=== PATIENT | male | born 1990 | race Caucasian/White ===

== ENCOUNTER 2018-08-23 16:45 | Emergency (ER) | payer OTHER, SELFPAY ==
[2018-08-23 16:47] VITALS: BP 132/80; PULSE 83; RESP 16; TEMP 37.1; O2SAT 97; BMI 32.3
[2018-08-23] MEDS: Acetaminophen 500 MG Tablet 1000 MG PO (17:21)
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
--- NOTE | 2018-08-23 17:24 | ED.DEP ---
ED Disposition - Plan for ED Patient: Disposition: Home or Assisted Living Chief Complaint: Laceration Instructions: ED Laceration Facial Skin Glue Referrals: Care Physician,No Primary [Primary Care Provider] -
[2018-08-23 17:54] VITALS: BP 128/78; PULSE 68; RESP 16; O2SAT 98
== END 2018-08-23 17:55 | disposition home or self-care (01) ==
PROVIDERS: Emergency Provider Emergency Medicine
DX: S01.21XA Laceration without foreign body of nose, initial encounter (principal); W22.8XXA Striking against or struck by other objects, initial encounter; Y93.89 Activity, other specified; Y92.9 Unspecified place or not applicable; Y99.0 Civilian activity done for income or pay
CPT/HCPCS: 12013; 99285

== ENCOUNTER → 2021-01-18 11:47 | Outpatient (CLI) | payer OTHER, SELFPAY ==
[2021-01-19 09:29] LABS: Thyroid Stim Hormone (TSH) 1.07 uIU/mL (0.358-3.74)
== END ==
PROVIDERS: Visit Provider Family Medicine
DX: F32.9 Major depressive disorder, single episode, unspecified (principal)
CPT/HCPCS: 36415; 84443

== ENCOUNTER → 2021-12-31 | Outpatient (CLI) | payer OTHER, SELFPAY ==
[2021-12-31 16:03] LABS: Anion Gap 6 (5-15); BUN 19 mg/dL (7-18); BUN/Creat Ratio 16.4 RATIO (10-20); Calcium,Total 9.2 mg/dL (8.5-10.1); Chloride 105 mmol/L (98-107); Creatinine, Serum 1.16 mg/dL (0.70-1.30); EST Glomerular Filtration Rate 77 mL/min (>60); Est Glom Filt Rate - Afr Amer 93 mL/min (>60); Glucose 86 mg/dL (74-106); Potassium 3.8 mmol/L (3.5-5.1); Sodium Level 138 mmol/L (136-145)
== END | disposition home or self-care (01) ==
LOC: MFPLAB 12:24
PROVIDERS: Visit Provider Family Medicine
DX: R30.0 Dysuria (principal)
CPT/HCPCS: 36415; 80048

== ENCOUNTER → 2022-01-01 | Outpatient (CLI) | payer OTHER, SELFPAY ==
--- NOTE | 2022-01-01 09:07 | US_ITS ---
STUDY: RENAL ULTRASOUND - COMPLETE REASON FOR EXAM: Male, 31 years old. Bilateral back pain. TECHNIQUE: Ultrasound evaluation of the kidneys was performed with real-time and static mckay-scale imaging. COMPARISON: None. FINDINGS: RIGHT KIDNEY: Normal location of the right kidney, which is normal in size. The right kidney measures 10.2 x 5.9 x 5.2 cm. There is a normal cortex of the right kidney. The renal cortex measures 1.6 cm. There is no right renal mass or cyst. There are no right renal calculi. There is no right hydronephrosis. DISTAL RIGHT URETER: There is non-visualization of the distal right ureter. There is no demonstrated right ureterovesical junction calculus. There is a visualized right ureteral jet. LEFT KIDNEY: Normal location of the left kidney, which is normal in size. The left kidney measures 11.2 x 4.6 x 5.2 cm. There is a normal cortex of the left kidney. The renal cortex measures 1.7 cm. There is no left renal mass or cyst. There are no left renal calculi. There is no left hydronephrosis. DISTAL LEFT URETER: There is non-visualization of the distal left ureter. There is no demonstrated left ureterovesical junction calculus. There is a visualized left ureteral jet. BLADDER: The distended urinary bladder has a volume of 433 ml. There is a normal wall thickness of the distended urinary bladder. There is no demonstrated mass within the urinary bladder. There are no demonstrated bladder calculi. US/Kidney and Bladder IMPRESSION: Unremarkable ultrasound of the kidneys and urinary bladder. Electronically Signed: Kristofer Ramirez MD at 12:13 EDT ,
== END | disposition home or self-care (01) ==
LOC: US 09:06
PROVIDERS: PCP Family Medicine; Referring Provider Family Medicine; Visit Provider Family Medicine
DX: N23 Unspecified renal colic (principal)
CPT/HCPCS: 76770

== ENCOUNTER 2023-07-03 19:48 | Emergency (ER) | payer OTHER, SELFPAY ==
[2023-07-03 19:50] VITALS: BP 131/83; PULSE 102; RESP 18; TEMP 36.2; O2SAT 98; BMI 26.4
--- NOTE | 2023-07-03 21:00 | EX.ED.DYSGE1 ---
HPI History of Present Illness Chief Complaint: Abscess Narrative Narrative: 33-year-old male who denies significant past medical history but states he has had a cyst on his back for an extended period of time presents with redness, pain, and swelling of the area adjacent to the cyst on his lumbar spine or of the cyst itself. He denies any fevers or chills, no nausea or vomiting. He has an appointment with his primary care provider later on this week, but over the last 2 to 3 days has noticed increased swelling and redness to the area. It is more to the left of where his usual cyst is. It is painful to touch. PFSH PFS Medical History no medical history Home Medications hydrocodone-acetaminophen 5-325mg 5mg-325mg 1 tab PO Q6H PRN PRN Pain 3 days #12 TABLETS 07/03/23 [Rx Last Taken Unknown] sulfamethoxazole 800 mg-trimethoprim 160 mg tablet (Bactrim DS) 1 tab PO BID #14 tabs 07/03/23 [Rx Last Taken Unknown] Allergy/AdvReac Type Severity Reaction Status Date / Time No Known Allergies Allergy Verified 08/23/18 16:47 Surgical History no surgical history Social History Smoking Status: Never smoker ROS ROS ED ROS Narrative Constitutional: No fever, no chills. HEENT: No sore throat. No neck pain. No loss of vision. No rhinorrhea. Cardiovascular: No chest pain. No palpitations. No pedal edema. Respiratory: No cough, no shortness of breath. Abdominal: No abdominal pain. No nausea. No vomiting. Genitourinary: No dysuria. No hematuria. Musculoskeletal: No myalgias. No arthralgias. Neurologic: No headaches. No dizziness. No lightheadedness. Skin: No rash. Positive swelling to area around cyst on lumbar spine, with increased redness. Psychiatric: No depression. No anxiety. EXAM Physical Exam Narrative Exam Narrative: Afebrile. Vital signs noted. Nontoxic-appearing. HEENT: Normocephalic. Atraumatic. PERRL, EOMI. Neck soft and supple. No point tenderness or step off. Cardiovascular: Regular rate and rhythm. No murmurs, rubs, or gallops appreciated. Respiratory: No tachypnea. Lungs clear to auscultation bilaterally. Gastrointestinal: Abdomen soft, nontender, with normoactive bowel sounds. No rebound or guarding. Neurological: Awake. Alert. Nonfocal, nonlateralizing. Skin: No rash. Positive abscess on left lumbar spine area. Mild fluctuance. Positive tenderness to palpation. Musculoskeletal: No pedal edema. Full range of motion extremities. Const Vital Signs: 07/03/23 19:50 Temperature 97.2 F L Temperature Source Temporal Pulse Rate 102 H Respiratory Rate 18 Blood Pressure 131/83 H Blood Pressure Mean 99 Pulse Ox 98 Oxygen Delivery Method Room Air MDM MDM MDM Narrative Medical decision making narrative: Patient may have had a subs patient has cyst, and there is an area adjacent to it that is more reddened and cellulitic with tenderness and fluctuance. I do feel that incision and drainage needs to be performed. He was given his first dose of Bactrim and he was informed of the risk of continued infection and scarring. I do not feel laboratory work is indicated. See procedure note for detail. As this is an infected sebaceous cyst with a large amount of purulent material removed, he was told of the risk of reaccumulation and that he may need to see a general surgeon. He is to have the packing removed in 48 hours. He states he has an appointment with his primary care provider on Monday, 2 days from now. He will be placed on Bactrim and given a short course of [place] for analgesia. I feel he be discharged safely home with follow-up. Return instructions to the emergency department were reviewed. Disposition is discharged home in stable condition. Procedures Other Procedures Procedure(s): Incision and drainage. Procedure note: Area was prepped with Povidine iodine, and local infiltration of lidocaine 1% without epinephrine. Stellate incision was made using a #11 blade. Gentle pressure was applied and there was a large amount of sebaceous cyst material removed, then bloody drainage. Area was irrigated and deloculated using hemostats. Quarter inch packing was placed with long double tails. Patient tolerated procedure well. Discharge Plan Triage Chief Complaint: Abscess ED Provider: Tyson Cole Dx/Rx/DC Orders Clinical Impression: Cellulitis, Infected sebaceous cyst Instructions: ED Abscess Incision And Drainage, Epidermoid Cyst Infect Antibiotics Prescriptions: New sulfamethoxazole-trimethoprim [Bactrim DS] 800-160 mg tablet 1 tab PO BID Qty: 14 0RF hydrocodone-acetaminophen 5-325 mg tablet 1 tab PO Q6H PRN PRN (Reason: Pain) 3 Days Qty: 12 0RF Primary Care Provider: Shayne Bennett Referrals: Shayne Bennett MD [Primary Care Provider] - Keep April appointment Activity Restrictions/Additional Instructions: Have packing removed in 48 hours, on Monday. Antibiotics as directed. You may need follow-up with a surgeon should your cyst recur. Disposition Disposition: Home, Self Care
[2023-07-03] MEDS: Lidocaine 1% (20 ml mdv) 20 ML Vial INFILT (21:16)
[2023-07-03] MEDS: Smz/Tmp Ds Tablet 1 TABLET PO (21:16)
== END 2023-07-03 22:09 | disposition home or self-care (01) ==
PROVIDERS: Emergency Provider Emergency Medicine; PCP Family Medicine; Visit Provider Emergency Medicine
DX: L72.3 Sebaceous cyst (principal); L03.90 Cellulitis, unspecified; L02.212 Cutaneous abscess of back [any part, except buttock and flank]
CPT/HCPCS: 10060; 99282

== ENCOUNTER 2023-11-11 15:54 | Emergency (ER) | payer OTHER, SELFPAY ==
[2023-11-11 15:55] VITALS: BP 159/74; PULSE 75; RESP 14; TEMP 36.6; O2SAT 100; BMI 27.7
--- NOTE | 2023-11-11 16:16 | CT_ITS ---
STUDY: CT ABDOMEN AND PELVIS WITHOUT CONTRAST REASON FOR EXAM: Male, 33 years old. right flank pain RADIATION DOSAGE (If Supplied By Facility): CTDIvol = ( 7.59 ) mGy, DLP = ( 386.72 ) mGycm TECHNIQUE: Transaxial images were obtained from the dome of the diaphragm to the symphysis pubis without oral contrast, and without intravenous contrast. Sagittal and coronal images were reconstructed. Individualized dose optimization techniques were used for this CT. COMPARISON: None. FINDINGS: The visualized lung bases are unremarkable. The visualized portions of the heart are within normal limits. Normal liver. The gallbladder is contracted. Normal spleen. Normal pancreas. Normal bilateral adrenal glands. Normal right kidney. Normal left kidney. Normal visualized stomach. Normal small intestine. Normal colon. The appendix is visualized and appears normal. Normal abdominal aorta. Normal inferior vena cava. Normal retroperitoneum. Normal urinary bladder. Normal abdominal wall. Normal osseous structures. CT/Abdomen/Pelvis without Cont IMPRESSION: Normal unenhanced CT of the abdomen and pelvis. Electronically Signed: Deric Alberto MD at 17:32 EDT ,
--- NOTE | 2023-11-11 16:18 | EX.ED.DYSGE1 ---
HPI History of Present Illness Chief Complaint: Back Informant: patient Narrative Narrative: Patient presents secondary to low back pain along with discoloration to his hands. He states he has had some low back pain and stiffness for quite some time. He lately has had intermittent pain going down his right leg. He has noted pain being slightly more to the right flank area and will occasionally have to increase pressure to urinate, but does not have difficulty urinating. Patient states he was sitting at a volleyball match today when his back pain got significantly worse. He noted his hands to be slightly blue in color. He did not think much of it but looked later in his hands were a darker blue in color. He did not think his hands were cold. PFSH PFSH Medical History no medical history no medical history Home Medications prednisone 20 mg tablet 40 mg (2 x 20 mg) PO DAILY #8 tabs 11/11/23 [Rx Last Taken Unknown] Allergy/AdvReac Type Severity Reaction Status Date / Time No Known Allergies Allergy Verified 11/11/23 15:58 Family History Mother Hypertension Kidney disease Social History Smoking Status: Never smoker alcohol intake: never substance use type: does not use ROS ROS ED Constitutional Constitutional ED: Denies chills or fever(s) Eyes Eyes: Denies discharge from eye(s) ENT ENT ED: Denies discharge from eye(s), rhinorrhea or sore throat Cardiovascular Cardiovascular: Denies chest pain Respiratory/Chest Respiratory/Chest: Denies cough or dyspnea Gastrointestinal Gastrointestinal: Denies abdominal pain, nausea or vomiting Genitourinary Genitourinary ED: Denies dysuria or hematuria Musculoskeletal Musculoskeletal: Reports back pain; Denies extremity pain Integumentary Reports other Details: Hands appear blue in color ; Denies Abrasions or rash Neurologic Neurologic: Denies headache(s), paresthesias or weakness Allergic/Immunologic Allergic/Immunologic ED: Denies lip swelling or urticaria EXAM Physical Exam Const Vital Signs: 11/11/23 15:55 Temperature 97.9 F Temperature Source Temporal Pulse Rate 75 Respiratory Rate 14 Blood Pressure 159/74 H Blood Pressure Mean 102 Pulse Ox 100 Oxygen Delivery Method Room Air Positive well nourished and well developed General Appearance ED: well developed HEENT Reports moist mucous membranes Eyes EOMs intact bilaterally Chest Wall inspection of chest normal and palpation of chest normal Resp normal respiratory effort and clear to auscultation bilaterally Cardio regular rate and regular rhythm GI non-tender Palpation: soft Back/Spine Back/Spine Narrative: Mild tenderness in the mid to low lumbar spine both midline as well as in the right paraspinal muscles. Extremity normal to inspection Extremity Narrative: Normal strength and sensation the lower extremities. Strong distal pulses. Patient observed ambulating to the room without difficulty. Psych mental status grossly normal Skin no rashes or lesions noted MDM MDM MDM Narrative Medical decision making narrative: IV line established. Labwork obtained to evaluate for leukocytosis, anemia, and electrolyte derangement. Urinalysis obtained to evaluate for infection/hematuria. CT flank obtained to evaluate for any acute spinal abnormality or renal abnormality given flank pain with some urinary symptoms. Does have a family history of kidney failure. History & Record Review Discussion w/independent historian: Patient Additional record(s) reviewed:: Prior labs Lab Data Attestation: I reviewed the patient's lab results. Labs: Laboratory Results - last 24 hr 11/11/23 11/11/23 16:25 16:57 WBC 8.6 RBC 5.33 Hgb 16.3 Hct 48.1 MCV 90.2 MCH 30.6 MCHC 33.9 RDW Std Deviation 38.4 RDW Coeff of Mata 11.6 Plt Count 239 MPV 10.1 Immature Gran % (Auto) 0.200 Neut % (Auto) 56.2 Lymph % (Auto) 33.9 Hood % (Auto) 6.9 Eos % (Auto) 2.1 Baso % (Auto) 0.7 Absolute Neuts (auto) 4.8 Absolute Lymphs (auto) 2.90 Nucleated RBC % 0 Sodium 139 Potassium 3.6 Chloride 108 H Carbon Dioxide 26.0 Anion Gap 5 BUN 21 H Creatinine 1.20 Estim Creat Clear Calc 92.38 Est GFR (MDRD) Af Amer 89 Est GFR (MDRD) Non-Af 73 BUN/Creatinine Ratio 17.5 Glucose 108 H Calcium 9.4 Urine Color Yellow Urine Clarity Sl. Cloudy Urine pH 6.0 Ur Specific Hickman 1.025 Urine Protein 15 H Urine Glucose (UA) Normal Urine Ketones Negative Urine Occult Blood Negative Urine Nitrite Negative Urine Bilirubin Negative Urine Urobilinogen Normal Ur Leukocyte Esterase Negative Urine RBC 0-5 SEEN Urine WBC 0 SEEN Ur Squamous Epith Cells 0-5 SEEN Urine Bacteria 0 SEEN Urine Mucus 0 SEEN Radiography Diagnostic Testing: Clinical Impression(s) from Imaging Studies Abdomen/Pelvis CT 11/11/23 16:16 IMPRESSION: Normal unenhanced CT of the abdomen and pelvis. Electronically Signed: Deric Alberto MD at 17:32 EDT , Treatment and Re-Evaluation :: CBC was normal white count 8.6 with a hemoglobin of 16.3. Chemistry studies reveal a BUN of 21 and a creatinine 1.20. This is consistent with prior values. Urinalysis reveals 15 protein with no evidence of acute infection. No hematuria. CT of the flank is unremarkable. On my review of the images, looking at the sagittal cuts patient does appear to have minimized space between L5 and S1. I do believe he has some degree of sciatica. Test results are reviewed with he and his . I advised him that I am unable to tell him why his hands appeared blue earlier, however at this time blood work is unremarkable. I do not believe this is related to an acute cardiac event or arterial blockage. Patient will be given a short burst of prednisone to help with nerve inflammation. He will be referred to Dr. Gann, spine surgery to follow-up as needed. Discharge Plan Triage Chief Complaint: Back ED Provider: Kayli Moss Dx/Rx/DC Orders Clinical Impression: Discoloration of skin of hand, Sciatica Instructions: ED Sciatica Prescriptions: New prednisone 20 mg tablet 40 mg PO DAILY Qty: 8 0RF Primary Care Provider: Kieran Bennett Referrals: Kieran Bennett MD [Primary Care Provider] - Yuriy Gann DO [Med Staff - Active Staff] - As Needed Disposition Disposition: Home, Self Care
[2023-11-11 16:32] LABS: Absolute Neutrophil Count 4.8 X10^3/uL (2.0-7.7); Basophil# 0.06 X10^3/uL; Basophil% 0.7 % (0-1); Eosinophil# 0.18 X10^3/uL; Eosinophils% 2.1 % (0-5); Hematocrit 48.1 % (40-54); Hemoglobin 16.3 g/dL (13.0-16.5); Lymphocyte % 33.9 % (19-41); Mean Corp Hgb Conc 33.9 g/dL (32-36); Mean Corpuscular Hgb 30.6 pg (27.0-32.0); Mean Corpuscular Volume 90.2 fL (80-94); Mean Platelet Vol. 10.1 fl (6.2-12.0); Monocyte# 0.59 X10^3/uL; Monocyte% 6.9 % (0-10); NRBC Flagged by Analyzer 0 % (0-5); Neutrophil # 4.81 X10^3/uL (2.7-7.7); Neutrophil % 56.2 % (47-70); Platelet Count 239 K/mm3 (150-450); RBC Distribution Width CV 11.6 % (11.6-14.6); RBC Distribution Width SD 38.4 fl (35.1-43.9); Red Blood Count 5.33 M/mm3 (4.6-6.2); White Blood Count 8.6 K/mm3 (4.4-11.0)
[2023-11-11 16:51] LABS: Anion Gap 5 (5-15); BUN 21 mg/dL (7-18); BUN/Creat Ratio 17.5 RATIO (10-20); Calcium,Total 9.4 mg/dL (8.5-10.1); Chloride 108 mmol/L (98-107); EST Glomerular Filtration Rate 73 mL/min (>60); Est Glom Filt Rate - Afr Amer 89 mL/min (>60); Estimated Creatinine Clearance 92.38 ml/min; Glucose 108 mg/dL (74-106); Potassium 3.6 mmol/L (3.5-5.1); Sodium Level 139 mmol/L (136-145)
[2023-11-11 17:00] VITALS: BP 135/78; PULSE 74; RESP 16; TEMP 36.3; O2SAT 97
[2023-11-11 17:04] LABS: Bacteria 0 SEEN /hpf (None Seen); Mucous, Urine 0 SEEN /hpf (<or=2+); White Blood Cells 0 SEEN /hpf (0-5)
[2023-11-11 17:06] LABS: Color, Urine Yellow (Yellow); Glucose, Dipstick Normal (Normal); Ketone-Dipstick Negative (Negative); Leukocyte Esterase-Dipstick Negative /ul (Negative); Nitrite-Dipstick Negative (Negative); Occult Blood-Urine Negative /ul (Negative); Protein-Dipstick 15 mg/dl (Negative); Specific Gravity, Urine 1.025 (1.002-1.030); Urine Bilirubin Dipstick Negative (Negative); Urine Clarity Sl. Cloudy (Clear); Urine Urobilinogen Normal (Normal)
[2023-11-11 17:12] LABS: Red Blood Cells-Urine 0-5 SEEN /hpf (0-5); Squamous Epithelial Cells - UA 0-5 SEEN /hpf (0-5)
== END 2023-11-11 18:00 | disposition home or self-care (01) ==
PROVIDERS: Emergency Provider Emergency Medicine; PCP Family Medicine; Visit Provider Emergency Medicine
DX: M54.41 Lumbago with sciatica, right side (principal)
CPT/HCPCS: 74176; 80048; 81001; 85025; 99283; A4216

== ENCOUNTER → 2024-02-19 | Outpatient (CLI) | payer OTHER, SELFPAY ==
--- NOTE | 2024-02-19 | CYST_PTH ---
PATIENT: MAYITO CHANDLER LOC: [facility] U#:[id number] AGE/SX: 34/M ROOM: RE02/19/[address]: Dr. Charbel He MD : [id number] BED: DIS: 02/19/2024 SPEC #: [id number] RECD: 02/19/24 10:26 STATUS: ANIKET CHITO #: [id number] SHANNON: 02/19/24 00:[address]: Charbel He DEPT: SURGICAL PATHOLOGY RECD BY: Benjamin Ruelas ENTERED: 02/19/24 13:46 SP TYPE: Cyst OTHR DR: Dr. Kieran Bennett MD Tissues: CYST Procedures: Surgery Specimen Level III HEADER OPERATION: Excision of cyst on back PRE-OP DIAGNOSIS: Cyst on back TISSUE SUBMITTED: Cyst on back MICROSCOPIC DIAGNOSIS Back cyst, excision: Epidermal inclusion cyst. HOLLEY/ 02/20/2024 MICROSCOPIC DESCRIPTION Slides are reviewed. GROSS DESCRIPTION Received in fixative is one container labeled with the patient's name and designated Cyst on back. The specimen consists of two pieces of skin with underlying tissue measuring 2.8 x 1.2 x 1.5cm and 1.5 x 0.6 x 2.0cm. Both pieces show a previously opened cyst measuring 1.5cm in greatest dimension. No cyst content is identified. Cyst wall is smooth. Human Resources Compensation Analyst sections are submitted in two cassettes. HOLLEY/ 02/19/2024 TC:5 CPT:20831
== END | disposition home or self-care (01) ==
LOC: LABSPEC 10:35
PROVIDERS: PCP Family Medicine; Referring Provider Surgery; Visit Provider Surgery
DX: L72.9 Follicular cyst of the skin and subcutaneous tissue, unspecified (principal)
CPT/HCPCS: 88304